=== PATIENT | male | born 1970 | race Caucasian/White ===

== ENCOUNTER 2018-01-13 23:50 | Emergency (ER) | payer MEDICAID ==
[~2018-01-13] VITALS: Ht 170.2 cm; Wt 72.7 kg
[2018-01-14 00:03] VITALS: Ht 170.2 cm; Wt 72.7 kg
[2018-01-14] MEDS ORDERED: HYDROCODON-ACE1 EAC7 PO (01:03)
[2018-01-14] MEDS ORDERED: ILOTYCIN1 GM RIGHT EYE (01:03)
[2018-01-14 01:11] VITALS: BP 118/68
== END 2018-01-14 01:19 | disposition home or self-care (01) ==
LOC: D.ER 23:50
DX: T15.01XA Foreign body in cornea, right eye, initial encounter (principal); X58.XXXA Exposure to other specified factors, initial encounter; Y93.89 Activity, other specified; Y92.89 Other specified places as the place of occurrence of the external cause